=== PATIENT | female | born 1960 | race Caucasian/White ===

== ENCOUNTER 2018-02-13 23:12 | Emergency (ER) | payer BC ==
[2018-02-13 23:52] LABS: Absolute Lymphocytes (CBC) 3.1 K/uL (0.7-4.9); Absolute Monocytes 0.5 K/uL (0.1-1.3); Absolute Neutrophil 2.3 K/uL (1.8-8.0); Basophils % 0.5 % (0-1.3); Eosinophils % 1.6 % (0-4.4); Hematocrit 41.9 % (36.0-45.0); Lymphocytes % 51.5 % (15.3-44.8); MCH 33.9 pg (27.0-35.0); MCV 99.2 fL (80-100); MPV 9.2 fL (7.6-11.3); Monocytes % 7.6 % (3.3-12.3); RBC Red Blood Cell Count 4.22 M/uL (3.86-4.86)
[2018-02-13 23:56] LABS: Protime INR 0.97
[2018-02-14 00:11] LABS: ALT/SGPT 26 U/L (12-78); AST/SGOT 16 U/L (15-37); Albumin 3.5 g/dL (3.4-5.0); Alkaline Phosphatase 120 U/L (45-117); BUN Blood Urea Nitrogen 8 mg/dL (7-18); Bicarbonate 26 mmol/L (21-32); Bilirubin Direct < 0.1 mg/dL (0-0.2); Bilirubin Total 0.3 mg/dL (0.2-1.0); CKMB Creatine Kinase MB < 1.0 ng/mL (0.3-3.6); Creatine Phosphokinase 71 U/L (26-192); Glucose Level 94 mg/dL (74-106); Magnesium 2.2 mg/dL (1.8-2.4); NT PRO-BNP 93 pg/mL (<125); Potassium 3.9 mmol/L (3.5-5.1); Protein, Total 7.7 g/dL (6.4-8.2); Sodium Level 146 mmol/L (136-145); Troponin (Emerg Dept Use Only) < 0.02 ng/mL (0.0-0.045)
[2018-02-14] MEDS ORDERED: NA CHLORIDE 0.9% 1,000 ML ONE ×2 (00:45→01:18)
[2018-02-14 01:15] LABS: Urine Blood NEGATIVE (NEG); Urine Glucose NEGATIVE (NEG); Urine Protein NEGATIVE (NEG)
[2018-02-14 01:15] LABS: Barbiturates NEGATIVE (NEGATIVE); Benzodiazepines NEGATIVE (NEGATIVE); Cocaine NEGATIVE (NEGATIVE); METHAMPHETAM NEGATIVE (NEGATIVE); Methadone NEGATIVE (NEGATIVE); Opiates NEGATIVE (NEGATIVE); Phencyclidine NEGATIVE (NEGATIVE); THC Cannibis POSITIVE (NEGATIVE)
[2018-02-14] MEDS ORDERED: THIAMINE 200 MG/2 ML INJ ONE (01:16)
[2018-02-14] MEDS ORDERED: MULTIVITAMINS 10 ML VIAL (INJ) IV ONE (01:16)
[2018-02-14] MEDS ORDERED: FOLIC ACID 5 MG/ML VIAL ONE (01:17)
--- NOTE | 2018-02-14 02:41 | ER ---
Nurse's Notes [facility] Name: Dara Wadsworth Age: 57 yrs Sex: Female : 1960 Arrival Date: 02/13/2018 Time: 23:17 Bed 15 Private MD: Diagnosis: Alcohol abuse with intoxication Presentation: 02/13 23:18 Presenting complaint: EMS states: Patient is being weak and dizzy for the past few ao days. Weakness is getting worst lately. Patient denies vomiting or nausea. Patient is AOX2. Transition of care: patient was not received from another setting of care. No acute neurological deficit is noted. Pre-hospital glucose is not applicable to this patient. Onset of symptoms was February 13, 2018 at 03:00. Risk Assessment: Do you want to hurt yourself or someone else? Patient reports no desire to harm self or others. Initial Sepsis Screen: Does the patient meet any 2 criteria? No. Patient's initial sepsis screen is negative. Does the patient have a suspected source of infection? No. Patient's initial sepsis screen is negative. Care prior to arrival: None. 23:18 Method Of Arrival: EMS: [facility] ao 23:18 Acuity: DIANA 3 ao Triage Assessment: 23:48 The onset of the patients symptoms was February 12, 2018 at 15:00. General: Appears in ao no apparent distress. comfortable. General: Behavior is calm, listless, Confused. Neuro: Reports dizziness, since 1500 weakness since 1500. Stroke Activation: Physician: Stroke Attending; Name: ; Notified At: ; Arrived At: Physician: Chief Stroke Resident; Name: ; Notified At: ; Arrived At: Physician: Stroke Resident; Name: ; Notified At: ; Arrived At: Physician: ED Attending; Name: ; Notified At: ; Arrived At: Physician: ED Resident; Name: ; Notified At: ; Arrived At: 23:52 None activated. Pt shows no SS of stroke ao Historical: - Allergies: 23:23 No Known Allergies; ao - Home Meds: 23:23 Metoprolol Tartrate Oral [Active]; atorvastatin oral oral [Active]; ao - PMHx: 23:23 Hypertension; Hyperlipidemia; ao - PSHx: 23:23 None; ao - Immunization history:: Adult Immunizations up to date. - Social history:: Smoking status: Patient uses tobacco products, smokes one-half pack cigarettes per day, Patient uses alcohol, occasionally. Patient/guardian denies using street drugs. - Ebola Screening: : Patient negative for fever greater than or equal to 101.5 degrees Fahrenheit, and additional compatible Ebola Virus Disease symptoms Patient denies exposure to infectious person Patient denies travel to an Ebola-affected area in the 21 days before illness onset. Screenin:44 Abuse screen: Denies threats or abuse. Denies injuries from another. Nutritional ao screening: No deficits noted. Tuberculosis screening: No symptoms or risk factors identified. Fall Risk None identified. Assessment: 23:24 General: Appears in no apparent distress. Behavior is calm, cooperative, Smells of ao alcohol. Pain: Denies pain. Neuro: Level of Consciousness is awake, alert, Oriented to person, place, situation, Moves all extremities. Full function Speech is normal, Facial symmetry appears normal. Cardiovascular: Capillary refill < 3 seconds Patient's skin is warm and dry. Respiratory: Airway is patent Respiratory effort is even, unlabored, Respiratory pattern is regular, symmetrical. GI: Abdomen is obese, Bowel sounds present X 4 quads. : No signs and/or symptoms were reported regarding the genitourinary system. EENT: No signs and/or symptoms were reported regarding the EENT system. Derm: Skin is healthy with good turgor, Skin is pink, warm \T\ dry. normal, Skin temperature is warm. Musculoskeletal: Range of motion: limited in all extremities, Reports weakness in general weakness. 23:45 The patient has not been NPO before screening. The patient is alert, and able to follow ao commands. The patient does not exhibit slurred or garbled speech. The patient is not exhibiting difficulty speaking. The patient does not exhibit difficulty understanding words. The patient is able to swallow own secretions with no drooling or need for suction. Patient tolerated one teaspoon of water. No drooling, immediate coughing, gurgling, or clearing of the throat was noted. The patient tolerated 90mL of water. No drooling, immediate coughing, gurgling, or clearing of the throat was noted. The patient passed the bedside swallow screening. Oral medications may be given as ordered. Contact Physician for further diet orders. Provider notified of bedside swallow screening results: Servando SAN. 23:53 Reassessment: Patient states that drink alcohol occasional. Pt has odor of alchool. ao 02/14 00:57 Reassessment: Patient appears in no apparent distress at this time. Patient and/or ao family updated on plan of care and expected duration. Pain level reassessed. Patient is alert, oriented x 3, equal unlabored respirations, skin warm/dry/pink. 02:17 Reassessment: Patient appears in no apparent distress at this time. Patient and/or ao family updated on plan of care and expected duration. Pain level reassessed. Per MENA Andrew patient to stay until get sober and then to be discharge. Waiting on Dispo orders. 02:50 Reassessment: Patient felt dizzy ambulating. Karan andrew notified and decided to keep her ao longer before DC. 03:30 T-PA (Activase) Screening: Contraindications: Other: Pt not positive for stroke. Pt DC ao with alcohol intoxications. 03:31 Reassessment: DC instructions given to patient and significant other. patient agree ao with the POC and to follow up with PCP. patient agree with alcohol detox plan. Vital Signs: 02/13 23:21 BP 133 / 95; Pulse 94; Resp 16; Temp 98.1(O); Pulse Ox 99% on R/A; Weight 56.25 kg; ao Height 5 ft. 2 in. (157.48 cm); Pain 0/10; 02/14 00:57 BP 119 / 64; Pulse 78; Resp 15; Pulse Ox 100% on R/A; Pain 0/10; ao 02:17 BP 112 / 72; Pulse 84; Resp 22; Pulse Ox 100% on R/A; Pain 0/10; ao 02:50 BP 118 / 62; Pulse 82; Resp 12; Pulse Ox 99% on R/A; Pain 3/10; ao 02/13 23:21 Body Mass Index 22.68 (56.25 kg, 157.48 cm) ao NIH Stroke Scale Scores: 02/13 23:45 NIHSS Score: 1 ao ED Course: 23:17 Patient arrived in ED. ao 23:19 Servando Andrew PA is PHCP. cp 23:19 Logan Hurst MD is Attending Physician. cp 23:21 Triage completed. ao 23:24 Arm band placed on right wrist. Patient placed in an exam room, on a stretcher, on ao oxygen, on night clerk auditor, on pulse oximetry, Patient notified of wait time. 23:35 Inserted saline lock: 20 gauge in right antecubital area, using aseptic technique. ao Blood collected. 23:47 Patient has correct armband on for positive identification. Pulse ox on. NIBP on. ao 23:53 X-ray completed. Portable x-ray completed in exam room. Patient tolerated procedure kw well. 23:54 XRAY Chest (1 view) In Process Unspecified. EDMS 23:55 Romeo Peters RN is Primary Nurse. ao 02/14 00:[address] via stretcher. kw1 00:07 Basic Metabolic Panel Sent. ao 00:12 CT Head Brain wo Cont In Process Unspecified. EDMS 00:13 CT completed. Patient tolerated procedure well. Patient moved back from CT. kw1 03:29 No provider procedures requiring assistance completed. IV discontinued, intact, ao bleeding controlled, No redness/swelling at site. Pressure dressing applied. Administered Medications: 00:52 Drug: NS 0.9% 1000 ml Route: IV; Rate: 1 bolus; Site: right antecubital; ao 02:16 Follow up: IV Status: Completed infusion; IV Intake: 1000ml ao 01:12 Drug: Banana Bag - (NS 0.9% 1000 ml, foLIC Acid 1 mg, Thiamine 100 mg, Multivitamin 1 ao amp) Route: IV; Rate: 150 ml/hr; Site: right antecubital; 03:25 Follow up: IV Status: Completed infusion; IV Intake: 1000ml ao Point of Care Testing: Blood Glucose: 02/13 23:47 Blood Glucose: 84 mg/dL; ao Ranges: Intake: 02/14 02:16 IV: 1000ml; Total: 1000ml. ao 03:25 IV: 1000ml; Total: 2000ml. ao Outcome: 02:40 Discharge ordered by . cp 03:29 Discharged to home via wheelchair. ao 03:29 Condition: stable 03:29 Discharge instructions given to patient, Instructed on discharge instructions, follow up and referral plans. Demonstrated understanding of instructions, follow-up care, medications. 03:35 Patient left the ED. ao NIH Stroke Scale - NIH Stroke Score Date: 02/13/2018 Time: 23:45 Total Score = 1 1a. Level of Consciousness (LOC) - 0(Alert) 1b. Level of Consciousness (LOC) (Year \T\ Age) - 1(One) 1c. LOC Commands (Open \T\ Closes Eyes/Master Planner) - 0(Both) 2. Best Gaze (Lateral Gaze Paresis) - 0(Normal) 3. Visual Field Loss - 0(No visual loss) 4. Facial Palsy - 0(Normal) 5a. Left Arm: Motor (10-second hold) - 0(No drift) 5b. Right Arm: Motor (10-second hold) - 0(No drift) 6a. Left Leg: Motor (5-second hold - always test supine) - 0(No drift) 6b. Right Leg: Motor (5-second hold - always test supine) - 0(No drift) 7. Limb Ataxia (finger/nose \T\ heel/felipe - test with eyes open) - 0(Absent) 8. Sensory Loss (pinprick arms/legs/face) - 0(Normal) 9. Best Language: Aphasia (description/naming/reading) - 0(No aphasia) 10. Dysarthria (speech clarity - read or repeat words) - 0(Normal) 11. Extinction and Inattention (visual/tactile/auditory/spatial/personal) - 0(No abnormality) Initials: ao Signatures: Dispatcher [employer] EDIvon Oropeza Corey, PA PA cp Ortiz, Alex, RN RN ao Karen Guzman Corrections: (The following items were deleted from the chart) 02/13 23:54 23:24 General: Appears in no apparent distress. Behavior is calm, cooperative, ao ao
--- NOTE | 2018-02-14 02:41 | EDPHYS ---
Physician Documentation [facility] Name: Dara Wadsworth Age: 57 yrs Sex: Female : 1960 Arrival Date: 02/13/2018 Time: 23:17 Bed 15 Private MD: ED Physician Logan Hurst HPI: 02/13 23:25 This 57 yrs old Female presents to ER via EMS with complaints of Weakness, cp Dizziness. 23:25 The patient presents to the emergency department with weakness of the entire body, cp generalized weakness, dizziness. 23:25 Onset: The symptoms/episode began/occurred "past few days". cp 23:25 Associated signs and symptoms: Pertinent negatives: altered mental status, fever, cp headache, seizure, syncope. Patient's baseline: Neuro: alert and fully oriented, Motor: no deficits, Ambulation: walks without assistance, Speech: normal. Current symptoms: general weakness. Historical: - Allergies: 23:23 No Known Allergies; ao - Home Meds: 23:23 Metoprolol Tartrate Oral [Active]; atorvastatin oral oral [Active]; ao - PMHx: 23:23 Hypertension; Hyperlipidemia; ao - PSHx: 23:23 None; ao - Immunization history:: Adult Immunizations up to date. - Social history:: Smoking status: Patient uses tobacco products, smokes one-half pack cigarettes per day, Patient uses alcohol, occasionally. Patient/guardian denies using street drugs. - Ebola Screening: : Patient negative for fever greater than or equal to 101.5 degrees Fahrenheit, and additional compatible Ebola Virus Disease symptoms Patient denies exposure to infectious person Patient denies travel to an Ebola-affected area in the 21 days before illness onset. ROS: 23:30 Constitutional: Negative for body aches, chills, fever, poor PO intake. cp 23:30 Eyes: Negative for injury, pain, redness, and discharge. cp 23:30 ENT: Negative for drainage from ear(s), ear pain, sore throat, difficulty swallowing, difficulty handling secretions. 23:30 Cardiovascular: Negative for chest pain, edema. 23:30 Respiratory: Negative for cough, shortness of breath, wheezing. 23:30 Abdomen/GI: Negative for abdominal pain, vomiting, diarrhea, constipation, black/tarry stool, rectal bleeding. 23:30 : Negative for urinary symptoms. 23:30 Skin: Negative for cellulitis, rash. 23:30 Neuro: Positive for dizziness, general weakness, Negative for altered mental status, headache, loss of consciousness, seizure activity, syncope. 23:30 All other systems are negative. Exam: 23:35 Head/Face: Normocephalic, atraumatic. cp 23:35 Constitutional: The patient appears in no acute distress, alert, awake, non-diaphoretic, non-toxic, well developed, well nourished, smells of alcohol. 23:35 Eyes: Periorbital structures: appear normal, Pupils: equal, round, and reactive to light and accomodation, Extraocular movements: intact throughout, Conjunctiva: normal, no exudate, no injection, Sclera: no appreciated abnormality, Lids and lashes: appear normal, bilaterally. 23:35 ENT: External ear(s): are unremarkable, Ear canal(s): are normal, clear, TM's: bulging, is not appreciated, bilaterally, dullness, bilaterally, erythema, is not appreciated, bilaterally, Nose: is normal, Mouth: Lips: moist, Oral mucosa: pink and intact, moist, Posterior pharynx: is normal, airway is patent. 23:35 Neck: C-spine: vertebral tenderness, is not appreciated, crepitus, is not appreciated, ROM/movement: is normal, is supple, without pain, no range of motions limitations, no nuchal rigidity. 23:35 Chest/axilla: Inspection: normal, Palpation: is normal, no crepitus, no tenderness. 23:35 Cardiovascular: Rate: normal, Rhythm: regular, Pulses: Pulses are 2+ in right radial artery and left radial artery. Heart sounds: murmur, not appreciated, Edema: is not appreciated, JVD: is not appreciated. 23:35 Respiratory: the patient does not display signs of respiratory distress, Respirations: normal, no use of accessory muscles, no retractions, no splinting, no tachypnea, labored breathing, is not present, Breath sounds: are clear throughout, no decreased breath sounds, no stridor, no wheezing. 23:35 Abdomen/GI: Inspection: abdomen appears normal, Palpation: abdomen is soft and non-tender, in all quadrants, involuntary guarding, is not appreciated. 23:35 Musculoskeletal/extremity: Exam is negative for deformity, injury. 23:35 Skin: cellulitis, is not appreciated, no rash present. 23:35 Neuro: Orientation: to person, place \\T\\ time. Mentation: lucid, able to follow commands, Motor: moves all fours, strength is normal. 23:55 ECG was reviewed by the Attending Physician. Vital Signs: 23:21 BP 133 / 95; Pulse 94; Resp 16; Temp 98.1(O); Pulse Ox 99% on R/A; Weight 56.25 kg; ao Height 5 ft. 2 in. (157.48 cm); Pain 0/10; 02/14 00:57 BP 119 / 64; Pulse 78; Resp 15; Pulse Ox 100% on R/A; Pain 0/10; ao 02:17 BP 112 / 72; Pulse 84; Resp 22; Pulse Ox 100% on R/A; Pain 0/10; ao 02:50 BP 118 / 62; Pulse 82; Resp 12; Pulse Ox 99% on R/A; Pain 3/10; ao 02/13 23:21 Body Mass Index 22.68 (56.25 kg, 157.48 cm) ao NIH Stroke Scale Scores: 02/13 23:45 NIHSS Score: 1 ao MDM: 23:21 Patient medically screened. 02/14 02:39 Data reviewed: vital signs, nurses notes, lab test result(s), EKG, radiologic studies, cp CT scan, plain films. Test interpretation: by ED physician or midlevel provider: ECG, plain radiologic studies. Counseling: I had a detailed discussion with the patient and/or guardian regarding: the historical points, exam findings, and any diagnostic results supporting the discharge/admit diagnosis, lab results, radiology results, to return to the emergency department if symptoms worsen or persist or if there are any questions or concerns that arise at home. Response to treatment: the patient's symptoms have markedly improved after treatment, and as a result, I will discharge patient. 02/13 23:20 Order name: Basic Metabolic Panel 02/13 23:20 Order name: CBC with Diff; Complete Time: 23:56 02/14 02:38 Interpretation: Normal except: KENNY% 38.8; LYM% 51.5. 02/13 23:20 Order name: Ckmb; Complete Time: 01:02 cp 02/13 23:20 Order name: CPK; Complete Time: 01:02 cp 02/13 23:20 Order name: LFT's; Complete Time: 01:02 cp 02/13 23:20 Order name: Magnesium; Complete Time: 01:02 cp 02/13 23:20 Order name: NT PRO-BNP; Complete Time: 01:02 cp 02/13 23:20 Order name: PT-INR; Complete Time: 01:02 cp 02/13 23:20 Order name: Ptt, Activated; Complete Time: 01:02 cp 02/13 23:20 Order name: Troponin (emerg Dept Use Only); Complete Time: 01:02 cp 02/13 23:20 Order name: ETOH Level; Complete Time: 01:02 cp 02/14 02:39 Interpretation: ETOH 262. cp 02/13 23:20 Order name: Basic Metabolic Panel; Complete Time: 01:02 EDMS 02/13 23:20 Order name: UDS; Complete Time: 02:38 cp 02/14 02:38 Interpretation: Normal except: THC POSITIVE. 02/14 00:21 Order name: Glucose, Ancillary Testing; Complete Time: 01:02 EDMS 02/13 23:20 Order name: XRAY Chest (1 view) cp 02/13 23:20 Order name: EKG; Complete Time: 23:21 cp 02/13 23:20 Order name: Cardiac monitoring; Complete Time: 23:55 cp 02/13 23:20 Order name: EKG - Nurse/Tech; Complete Time: 23:55 cp 02/13 23:20 Order name: IV Saline Lock; Complete Time: 23:34 cp 02/13 23:20 Order name: Labs collected and sent; Complete Time: 23:34 cp 02/13 23:20 Order name: O2 Per Protocol; Complete Time: 23:34 cp 02/13 23:20 Order name: O2 Sat Monitoring; Complete Time: 23:34 cp 02/13 23:20 Order name: Urine Dipstick-Ancillary (obtain specimen); Complete Time: 00:32 cp 02/13 23:51 Order name: CT Head Brain wo Cont cp 02/14 00:39 Order name: Urine Dipstick--Ancillary (enter results); Complete Time: 02:38 mw2 EC/09 23:55 Rate is 78 beats/min. Rhythm is regular. DE interval is normal. QRS interval is normal. cp QT interval is normal. Interpreted by me. Reviewed by me. Administered Medications: 02/14 00:52 Drug: NS 0.9% 1000 ml Route: IV; Rate: 1 bolus; Site: right antecubital; ao 02:16 Follow up: IV Status: Completed infusion; IV Intake: 1000ml ao 01:12 Drug: Banana Bag - (NS 0.9% 1000 ml, foLIC Acid 1 mg, Thiamine 100 mg, Multivitamin 1 ao amp) Route: IV; Rate: 150 ml/hr; Site: right antecubital; 03:25 Follow up: IV Status: Completed infusion; IV Intake: 1000ml ao Point of Care Testing: Blood Glucose: 02/13 23:47 Blood Glucose: 84 mg/dL; ao Ranges: Critical Glucose Levels:Adult <50 mg/dl or >400 mg/dl <40 mg/dl or >180 mg/dl Disposition: 02/14 03:50 Co-signature as Attending Physician, Logan Hurst MD. pkl Disposition: 02/14/18 02:40 Discharged to Home. Impression: Alcohol abuse with intoxication. - Condition is Stable. - Discharge Instructions: Alcohol Intoxication, Alcohol Abuse and Nutrition. - Medication Reconciliation Form, Thank You Letter, Antibiotic Education, Prescription Opioid Use form. - Follow up: Emergency Department; When: As needed; Reason: Worsening of condition. - Problem is new. - Symptoms have improved. NIH Stroke Scale - NIH Stroke Score Date: 02/13/2018 Time: 23:45 Total Score = 1 1a. Level of Consciousness (LOC) - 0(Alert) 1b. Level of Consciousness (LOC) (Year \\T\\ Age) - 1(One) 1c. LOC Commands (Open \\T\\ Closes Eyes/Parts Facilitator) - 0(Both) 2. Best Gaze (Lateral Gaze Paresis) - 0(Normal) 3. Visual Field Loss - 0(No visual loss) 4. Facial Palsy - 0(Normal) 5a. Left Arm: Motor (10-second hold) - 0(No drift) 5b. Right Arm: Motor (10-second hold) - 0(No drift) 6a. Left Leg: Motor (5-second hold - always test supine) - 0(No drift) 6b. Right Leg: Motor (5-second hold - always test supine) - 0(No drift) 7. Limb Ataxia (finger/nose \\T\\ heel/felipe - test with eyes open) - 0(Absent) 8. Sensory Loss (pinprick arms/legs/face) - 0(Normal) 9. Best Language: Aphasia (description/naming/reading) - 0(No aphasia) 10. Dysarthria (speech clarity - read or repeat words) - 0(Normal) 11. Extinction and Inattention (visual/tactile/auditory/spatial/personal) - 0(No abnormality) Initials: ao Signatures: Dispatcher [employer] EDMS Logan Hurst MD MD pkServando Jerez PA PA Romeo Deluna, RN RN ao Corrections: (The following items were deleted from the chart) 00:07 02/13 23:20 Urine Test ordered. cp ao 02/14 03:35 02:40 02/14/2018 02:40 Discharged to Home. Impression: Alcohol abuse with ao intoxication. Condition is Stable. Forms are Medication Reconciliation Form, Thank You Letter, Antibiotic Education, Prescription Opioid Use. Follow up: Emergency Department; When: As needed; Reason: Worsening of condition. Problem is new. Symptoms have improved. cp
[2018-02-14 03:43] VITALS: TEMP 98.1
[2018-02-14 03:48] VITALS: BP 118/62; O2SAT 99
--- NOTE | 2018-02-14 08:38 | RAD REPORT ---
EXAM DESCRIPTION: RAD - Chest Single View - 02/13/2018 11:54 pm CLINICAL HISTORY: Weakness, shortness of breath, smoking history COMPARISON: October 2016 TECHNIQUE: AP portable chest image was obtained 2348 hours . FINDINGS: Lungs are clear. Heart and vasculature are normal. No measurable pleural effusion and no p neumothorax. No gross bony abnormality seen. No acute aortic findings suspected. IMPRESSION: No acute cardiopulmonary process. No significant change from comparison.
--- NOTE | 2018-02-14 08:39 | RAD REPORT ---
EXAM DESCRIPTION: CT - Head Brain Wo Cont - 02/14/2018 3:35 am CLINICAL HISTORY: Weakness, dizziness A preliminary report was provided at the time of the study and reviewed prior to final report. COMPARISON: None. TECHNIQUE: Axial 5 mm thick images of the head were obtained without IV contrast. All CT scans are performed using dose optimization technique as appropriate and may include automated exposure control or mA/KV adjustment according to patient size. FINDINGS: No intracranial hemorrhage, mass, edema or shift of mid-line structures. No acute infarcti on changes seen. No abnormal extra-axial fluid collections. Ventricles are normal. Mastoid air cells and visualized portions of the paranasal sinuses are clear. No acute bony findings. IMPRESSION: Negative non-contrast CT head examination.
--- NOTE | 2018-02-15 00:34 | EKG ---
Test Date: 2018-02-13 Test Time: 23:41:17 Member [employer]: JARVIS MEASUREMENT RESULTS: Intervals: Rate: 78 OH: 152 QRSD: 72 QT: 386 QTc: 440 Tolar: P: 11 OH: 152 QRS: 58 T: 26 INTERPRETIVE STATEMENTS: Normal sinus rhythm Normal ECG No previous ECG available for comparison Electronically Signed On 02-15-18 00:32:21 CDT by Mook Martinez
== END 2018-02-14 03:35 | disposition home or self-care (01) ==
LOC: ER 23:12
DX: I10 Essential (primary) hypertension (principal); E78.5 Hyperlipidemia, unspecified; F17.210 Nicotine dependence, cigarettes, uncomplicated
CPT/HCPCS: 36415; 70450; 71045; 80048; 80076; 80307; 80320; 81003; 82550; 82553; 82962; 83735; 83880; 84484; 85025; 85610; 85730; 93005; 96365; 96366; 99285; J3411; J7030

== ENCOUNTER 2022-12-10 00:19 | Emergency (ER) | payer OTHER ==
--- OUTSIDE RECORDS SUMMARY | 2022-12-10 00:27 | XMS REPORT | Continuity of Care Document ---
:1960 Author Organization [facility] t Address [address] [place] [address] Care Team Providers Name Role Phone Rocael OCONNELL, Denny Primary Care Physician [phone] Payers Payer Name Policy Type Policy Number Effective Date Expiration Date S ource [facility] - [id number] 2018 00:00:00 OUT OF STATE Problems This patient has no known problems. Allergies, Adverse Reactions, Alerts Allergy Allergy Status Severity Reaction(s) Onset Inactive Treating Comm ents Source Name Type Date Date Clinician Demerol Propensi Active - Oral ty to 03-04 adverse 00:00: reaction 00 to drug Demerol Propensi Active ty to 07-01 adverse 00:00: reaction 00 to drug MEPERIDI DRUG Active Hives [facility] INGREDI 02-23 ity of 00:00: [place] [facility] Medications Ordered Filled Start Stop Current Ordering Indication Dosage Frequency Signature Comments Components Source Medication Medication Date Date Medication? Clinician (SIG) Name Name Dose No Unknown 03-05 00:00: 00 Dose 0 No Unknown 07-02 00:00: 00 Vital Signs Vital Name Observation Time Observation Value Comments Source BP Systolic 2022-03-05 08:49:00 135 mm[Hg] BP Diastolic 2022-03-05 08:49:00 84 mm[Hg] Weight Measured 2022-03-05 08:49:00 125.60 pounds Height Measured 2022-03-05 08:49:00 56.00 inches Body Temperature 2022-03-05 08:49:00 97.80 degrees Heart Rate 2022-03-05 08:49:00 82.00 /min Respiratory Rate 2022-03-05 08:49:00 BP Systolic 2021-07-01 15:18:00 134 mm[Hg] BP Diastolic 2021-07-01 15:18:00 84 mm[Hg] Weight Measured 2021-07-01 15:18:00 125.00 pounds Height Measured 2021-07-01 15:18:00 Body Temperature 2021-07-01 15:18:00 98.30 degrees Heart Rate 2021-07-01 15:18:00 113.00 /min Respiratory Rate 2021-07-01 15:18:00 Procedures This patient has no known procedures. Plan of Care Planned Activity Planned Date Details Comments Source Goal Plan of Care Note [code = 89411-4] Goal Plan of Care Note [code = 30352-7] Goal Plan of Care Note [code = 49849-2] Goal Plan of Care Note [code = 20218-5] Goal Plan of Care Note [code = 99880-7] Goal Plan of Care Note [code = 67979-9] Goal Plan of Care Note [code = 28408-6] Goal Plan of Care Note [code = 54534-6] Goal Plan of Care Note [code = 24995-0] Goal Plan of Care Note [code = 37560-9] Goal Plan of Care Note [code = 38474-0] Goal Plan of Care Note [code = 96116-5] Goal Plan of Care Note [code = 94480-0] Goal Plan of Care Note [code = 10881-8] Goal Plan of Care Note [code = 02560-4] Goal Plan of Care Note [code = 66690-8] Encounters Start End Encounter Admission Attending Care Care Encounter Source Date/Time Date/Time Type Type Clinicians Facility Department ID 2021-04-04 Emergency [facility] [id number] Univers 14:11:02 it of [facility] 2022-12-02 2022-12-02 Outpatient SFA DREW [id number] 10:05:32 10:05:32 [id number] F Ortiz 2022-11-26 2022-11-26 Outpatient SFA SFA [id number] 09:10:55 09:10:55 [id number] F Ortiz 2022-11-25 2022-11-25 Outpatient SFA SFA [id number] 08:50:33 08:50:33 [id number] F [place] 2022-11-19 2022-11-19 Outpatient SFA SFA [id number] 08:38:01 08:38:01 [id number] F [place] 2022-11-18 2022-11-18 Outpatient SFA SFA [id number] 15:34:51 15:34:51 [id number] F [place] 2022-11-12 2022-11-12 Outpatient SFA SFA [id number] 13:24:36 13:24:36 [id number] F [place] 2022-11-06 2022-11-06 Outpatient SFA SFA [id number] [place] 13:18:46 13:18:46 [id number] F [place] 2022-10-15 2022-10-15 Outpatient SFA SFA [id number] [place] 13:17:13 13:17:13 [id number] F [place] 2022-08-24 2022-08-24 Outpatient SFA SFA [id number] [place] 16:39:36 16:39:36 [id number] F [place] 2022-03-24 2022-03-24 Outpatient SFA SFA [id number] [place] 11:17:53 11:17:53 [id number] [facility] 2022-03-05 2022-03-05 Outpatient [id number] 00:00:00 00:00:00 Visit [id number] Results Test Description Test Time Test Comments Results Result Comments Source COMPREHENSIVE METABOLIC PANEL 2022-11-20 07:33:21 Test Item Value Reference Range Interpretation Comme nts GLUCOSE (test code = 2217) 100 MG/DL 70-99 H BUN (test code = 2208) 13 MG/DL 8-23 CREATININE (test code = 0.73 MG/DL 0.60-1.30 2213) eGFR (2020 CKD-EPI) (test 93 ML/MIN/1.73 >60 code = 93734) CALC BUN/CREAT (test code = 18 RATIO 6-28 2234) SODIUM (test code = 2231) 142 MEQ/L 133-146 POTASSIUM (test code = 4.2 MEQ/L 3.5-5.4 2227) CHLORIDE (test code = 2215) 106 MEQ/L 95-107 CARBON DIOXIDE (test code = 22 MEQ/L -2205) CALCIUM (test code = 2209) 9.3 MG/DL 8.5-10.5 PROTEIN, TOTAL (test code = 7.3 G/DL 6.1-8.3 2228) ALBUMIN (test code = 2201) 4.2 G/DL 3.5-5.2 CALC GLOBULIN (test code = 3.1 G/DL 1.9-3.7 2239) CALC A/G RATIO (test code = 1.4 RATIO 1.0-2.6 2233) BILIRUBIN, TOTAL (test code 0.4 MG/DL See_Comment [Automated message] The = 2206) system which ge nerated this result transmit renetta reference range: <=1.2. T he reference range was not u sed to interpret this result as normal/abnormal . ALKALINE PHOSPHATASE (test 154 U/L 40-140 H code = 2203) AST (test code = 2218) 18 U/L 9-40 ALT (test code = 2219) 12 U/L 5-40 UNLE SS OTHERWISE INDICATED, ALL TESTING PER FORMED AT CLINICAL PATHOL [place], [facility]. [address] [place] [address] LABORATORY DIRE CTOR: Marcus WHITTAKERIA NUMBER [id number] CAP ACCREDITATION N O. [id number] HEMOGLOBIN [id number] 03:04:35 Test Item Value Reference Range Interpretation Comments HEMOGLOBIN A1c (test code = 58951) 5.5 % 4.2-5.6 H. PYLORI (BREATH)2022-11-19 14:45:26 Test Item Value Reference Range Interpretation Comments H. PYLORI (BREATH) POSITIVE NEGATIVE A UNLESS OTHERWISE (test code = 31275) INDICATE D, ALL TESTING PERFORMED AT INICAL PATHOLOGY [facility], [facility]. [address] [place] [address] [facility] DIRECTOR: Marcus CUEVASIA NUMBER [id number] CAP ACCREDITATION N O. [id number] COMPREHENSIVE METABOLIC [id number] 06:52:13 Test Item Value Reference Range Interpretation Comments GLUCOSE (test code = 150 MG/DL 70-99 H 2216) BUN (test code = 12 MG/DL 8-2207) CREATININE (test 0.77 MG/DL 0.60-1.30 code = 2213) eGFR (2020 CKD-EPI) 87 >60 (test code = 52065) ML/MIN/1.73 CALC BUN/CREAT (test 16 RATIO 6-28 code = 223) SODIUM (test code = 143 MEQ/L 362-953 8778) POTASSIUM (test code 4.2 MEQ/L 3.5-5.4 = 2227) CHLORIDE (test code 103 MEQ/L 95-107 = 2214) CARBON DIOXIDE (test 28 MEQ/L 19-31 code = 220) CALCIUM (test code = 10.1 MG/DL 8.5-10.5 2208) PROTEIN, TOTAL (test 7.6 G/DL 6.1-8.3 code = 2228) ALBUMIN (test code = 4.5 G/DL 3.5-5.2 2200) CALC GLOBULIN (test 3.1 G/DL 1.9-3.7 code = 2239) CALC A/G RATIO (test 1.5 RATIO 1.0-2.6 code = 2233) BILIRUBIN, TOTAL 0.3 MG/DL See_Comment [Automated message] (test code = 2206) The [employer] which generated this result transmitted ref erence range: <=1.2. T he reference range was not used to int erpret this result as normal/abnormal . ALKALINE PHOSPHATASE 144 U/L 40-140 H (test code = 2203) AST (test code = 21 U/L 9-40 2217) ALT (test code = 15 U/L 5-40 UNLESS OT HERWISE 2218) INDICATED, ALL TESTING PERFORM ED AT CLINICAL PATHOL [email or web address], [facility]. [address] [place] [id number] [place] [address] DIRECTOR: Marcus CUEVAS JUSTEN NUMBER [id number] CAP ACCREDITATION N O. [id number] COMPREHENSIVE METABOLIC [id number] 06:51:21 Test Item Value Reference Range Interpretation Comments GLUCOSE (test code = 100 MG/DL 70-99 H 2216) BUN (test code = 21 MG/DL 8-2207) CREATININE (test 0.82 MG/DL 0.60-1.30 code = 2213) eGFR (2020 CKD-EPI) 81 ML/MIN/1.73 >60 (test code = 13018) CALC BUN/CREAT (test 26 RATIO 6-28 code = 223) SODIUM (test code = 140 MEQ/L 583-416 9112) POTASSIUM (test code 4.4 MEQ/L 3.5-5.4 = 2227) CHLORIDE (test code 101 MEQ/L 95-107 = 2214) CARBON DIOXIDE (test 25 MEQ/L 19-31 code = 220) CALCIUM (test code = 10.6 MG/DL 8.5-10.5 H 2208) PROTEIN, TOTAL (test 7.7 G/DL 6.1-8.3 code = 2228) ALBUMIN (test code = 4.5 G/DL 3.5-5.2 2200) CALC GLOBULIN (test 3.2 G/DL 1.9-3.7 code = 2239) CALC A/G RATIO (test 1.4 RATIO 1.0-2.6 code = 2233) BILIRUBIN, TOTAL 0.4 MG/DL See_Comment [Automated message] (test code = 2206) The syste m which generated this result transmit renetta reference range : <=1.2. The refe rence range was not u sed to interpret th is result as normal/abnormal . ALKALINE PHOSPHATASE 168 U/L 40-140 H (test code = 2203) AST (test code = 21 U/L 9-40 2217) ALT (test code = 16 U/L 5-40 2218) TSH, THIRD [id number] 06:13:31 Test Item Value Reference Range Interpretation Comments TSH, THIRD 0.912 UIU/ML 0.400-4.100 UNLESS OTHERWI SE GENERATION (test INDICATED, ALL TESTING code = 2821) PERFORMED AT [facility] [place]. [address] [place] [address] [facility] [employer] DIRECTOR: Marcus CUEVAS JUSTEN NUMBER [id number] CAP ACCREDITATION N O. [id number] CBC W/AUTO DIFF WITH [id number] 06:03:55 Test Item Value Reference Range Interpretation Comments WBC (test code = 7.8 K/UL 3.5-11.0 1001) RBC (test code = 4.31 M/UL 3.80-5.40 1002) HEMOGLOBIN (test code 14.9 G/DL 11.5-15.5 = 1003) HEMATOCRIT (test code 42.6 % 34.0-45.0 = 1004) MCV (test code = 98.8 fL 80.0-99.0 1005) MCH (test code = 34.6 PG 25.0-33.0 H 1006) MCHC (test code = 35.0 G/DL 31.0-36.0 1007) RDW (test code = 12.3 % 11.5-15.0 1038) NEUTROPHILS (test 63.0 % code = 1008) LYMPHOCYTES (test 26.5 % code = 1010) MONOCYTES (test code 8.8 % = 1011) EOSINOPHILS (test 0.9 % code = 1012) BASOPHILS (test code 0.4 % = 1013) IMMATURE GRANULOCYTES 0.4 % (test code = 1036) NUCLEATED RBCS (test 0.0 /100 WBC'S See_Comment [Aut omated code = 1065) message] The sy stem which generated this result transmitted reference range : 0.0. The refere nce range was not u sed to interpret th is result as normal/abnormal . PLATELET COUNT (test 301 K/UL 130-400 code = 1015) ABSOLUTE NEUTROPHILS 4.89 K/UL 1.50-7.50 (test code = 1066) ABSOLUTE LYMPHOCYTES 2.06 K/UL 1.00-4.00 (test code = 1067) ABSOLUTE MONOCYTES 0.68 K/UL 0.20-1.00 (test code = 1068) ABSOLUTE EOSINOPHILS 0.07 K/UL 0.00-0.50 (test code = 1040) ABSOLUTE BASOPHILS 0.03 K/UL 0.00-0.20 (test code = 1069) ABS IMMATURE 0.03 K/UL 0.00-0.10 GRANULOCYTES (test code = 1020) ABS NUCLEATED RBCS 0.00 K/UL 0.00-0.11 (test code = 98992) CT/NG, NAAT, [id number] 19:03:35 Test Item Value Reference Range Interpretation Comments GONORRHEA, NAAT NEGATIVE NEGATIVE IMPORTA NT NOTICE: SEE (test code = [place] [address]) [email or web address] Note: Assay methodology is nucleic acid amplification b y sales representative malt liquors m ediated amplification ( TMA) utilizing the A ptima Combo 2 Assay. CHLAMYDIA, NAAT NEGATIVE NEGATIVE IMPORTA NT NOTICE: SEE (test code = [place] [address]) [email or web address] Note: Assay methodology is nucleic acid amplification b y sales representative malt liquors m ediated amplification ( TMA) utilizing the A ptima Combo 2 Assay. TRICHOMONAS, NAAT, [id number] 15:07:26 Test Item Value Reference Range Interpretation Comments TRICHOMONAS, NAAT NEGATIVE NEGATIVE IMPOR TANT NOTICE: SEE (test code = [place] [address]) [email or web address] Note: Assay methodology is nucleic acid amplification b y sales representative malt liquors m ediated amplification ( TMA) and Hybridization P rotection Assay (HPA) uti lizing the too.me platform. A negative result does not exclude low lev el infection, specimensamplin g error, or collection erro r. HIV 1/2 4TH GEN, RFLX [id number] 05:55:52 Test Item Value Reference Range Interpretation Comments HIV 1/2 4TH GEN, RFLX CONF (test NON-REACTIVE NON-REACTIVE code = 3514) HEPATITIS PANEL, [id number] 05:55:52 Test Item Value Reference Range Interpretation Comments HEPATITIS A IgM (test NON-REACTIVE NON-REACTIVE code = 48125) HEPATITIS B CORE IgM NON-REACTIVE NON-REACTIVE (test code = 4644) HEPATITIS B SURF AG NON-REACTIVE NON-REACTIVE (test code = 2739) HEPATITIS C ANTIBODY NON-REACTIVE NON-REACTIVE (test code = 4675) INTERPRETATION (NOTE) Hepatitis A HEPATITIS A: (test serology shows no code = 2552) evidence of acu te hepatitis A. INTERPRETATION (NOTE) Hepatitis B HEPATITIS B: (test serology shows no code = 32876) evidence of ac jacques hepatitis B and no indication of exposure to hepatitis B vir us in the previous si xto eight months. INTERPRETATION (NOTE) Hepatitis C HEPATITIS C: (test serology shows no code = 51143) evidence of ex posure to hepatitisC v irus at this time. I t can take up to 12 m onths after exposure tothe hepatitis C vir us for antibodies to become detectab le in the blood in ce rtain patients. UNLES S OTHERWISE INDIC ATED, ALL TESTING PERFORMED [facility]IES, [facility]. [address] [place] [address] [facility] DIRECTOR: DIANNA ESPINO M.D. CLIA NUMBER [id number] [place] [id number] 03:12:16 Test Item Value Reference Range Interpretation Comments RPR RESULT (test code = NON-REACTIVE NON-REACTIVE 3501) RPR TITER (test code = 3500) NOT INDIC. TITER NOT INDIC. [id number] 00:00:00 Test Item Value Reference Range Interpretation Comments RPR RESULT (test code = NON-REACTIVE 3501) RPR TITER (test code = 3500) NOT INDIC. TITER [id number] 00:00:00 Test Item Value Reference Range Interpretation Comments RPR RESULT (test code = NON-REACTIVE 3501) RPR TITER (test code = 3500) NOT INDIC. TITER [id number] 00:00:00 Test Item Value Reference Range Interpretation Comments RPR RESULT (test code = NON-REACTIVE 3501) RPR TITER (test code = 3500) NOT INDIC. TITER CT/NG, TMA, [id number] 00:00:00 Test Item Value Reference Range Interpretation Comments GONORRHEA, NAAT (test code = 38142) NEGATIVE CHLAMYDIA, NAAT (test code = 78564) NEGATIVE CT/NG, TMA, [id number] 00:00:00 Test Item Value Reference Range Interpretation Comments GONORRHEA, NAAT (test code = 15584) NEGATIVE CHLAMYDIA, NAAT (test code = 64022) NEGATIVE TRICHOMONAS, URINE, [id number] 00:00:00 Test Item Value Reference Range Interpretation Comments TRICHOMONAS, NAAT (test code = NEGATIVE 45816) TRICHOMONAS, URINE, [id number] 00:00:00 Test Item Value Reference Range Interpretation Comments TRICHOMONAS, NAAT (test code = NEGATIVE 98551) ACUTE HEPATITIS [id number] 00:00:00 Test Item Value Reference Range Interpretation Comments HEPATITIS A IgM (test code = NON-REACTIVE 72830) HEPATITIS B CORE IgM (test code NON-REACTIVE = 4644) HEPATITIS B SURF AG (test code = NON-REACTIVE 2739) HEPATITIS C ANTIBODY (test code NON-REACTIVE = 4675) INTERPRETATION HEPATITIS A: (NOTE) (test code = 2552) INTERPRETATION HEPATITIS B: (NOTE) (test code = 81974) INTERPRETATION HEPATITIS C: (NOTE) (test code = 64135) ACUTE HEPATITIS [id number] 00:00:00 Test Item Value Reference Range Interpretation Comments HEPATITIS A IgM (test code = NON-REACTIVE 55697) HEPATITIS B CORE IgM (test code NON-REACTIVE = 4644) HEPATITIS B SURF AG (test code = NON-REACTIVE 2739) HEPATITIS C ANTIBODY (test code NON-REACTIVE = 4675) INTERPRETATION HEPATITIS A: (NOTE) (test code = 2552) INTERPRETATION HEPATITIS B: (NOTE) (test code = 04784) INTERPRETATION HEPATITIS C: (NOTE) (test code = 52546) HIV 1/2 4TH GEN, RFLX [id number] 00:00:00 Test Item Value Reference Range Interpretation Comments HIV 1/2 4TH GEN, RFLX CONF (test NON-REACTIVE code = 3514) HIV 1/2 4TH GEN, RFLX [id number] 00:00:00 Test Item Value Reference Range Interpretation Comments HIV 1/2 4TH GEN, RFLX CONF (test NON-REACTIVE code = 3514) SARS-CoV-2 (COVID-19), RT-PCR/[id number] 08:05:27 Test Item Value Reference Interpretation Comments Range SARS-CoV-2 NEGATIVE SEE NOTE SARS-CoV-2 RNA NOT INTERPRETATION DETECTEDNegat patrizia (test code = 80951) results do not preclude SARS-CoV-2 infe ction and should notb e used as the sole bas is for patient managem ent decisions. Negativeresults must be combined with c linical observations, p atient history,and epidemiological information. Op timum specimen types and timingfor peak viral levels during infections caus ed by SARS-CoV-2 have notbeen determined. Col lection of multiple spe cimens or types ofspec imens may be necessar y to detect virus. I mproper specimencollect ion and handling, seque nce variability und er primers/probes, or organism presen t below the limit of de tection may lead to falsenegative r esults. Positive and ne gative predictive valu es oftesting are h ighly dependent on prevalence. Fal se negative testre sults are more likely when prevalence is h igh. SOURCE (test code = NOT SPECIFIED Note: [place] [address]) Melly Nathalia Cherie l-Time RT-PCR. The exp ected result or refer ence range is NEGATI VE (Not Detected). For more information reg arding COVID-19 testin g to include clinicalinforma tion, methodology det ail, intended use, F DA authorization andrecommended fact sheets for avery ents or healthcare prov iders, see BakedCode Announcement: SARS-CoV-2 (COV ID-19) by NAAT at URL below (note,fact shee ts are provided by met hod given in report:https:// [email or web address] [email or web address] [email or web address] Alternatively, see downloadable PD F fact sheet at:[email or web address]. [email or web address]-RT -PCR UNLESS OTHERWIS E INDICATED, ALL TESTING PERFORMED [facility] NICAL [facility] [address] [place] [address] 4 LABORATORY DIRE CTOR: DIANNA MONCADA M.D. CLIA NUMBER [id number] [place] [id number] SARS-CoV-2 (COVID-19) by RT-PCR (HIGH RISK)2021 00:00:00 Test Item Value Reference Range Interpretation Comments SARS-CoV-2 INTERPRETATION (test NEGATIVE code = 85626) SOURCE (test code = 30605) NOT SPECIFIED SARS-CoV-2 (COVID-19) by RT-PCR (HIGH RISK)2021 00:00:00 Test Item Value Reference Range Interpretation Comments SARS-CoV-2 INTERPRETATION (test NEGATIVE code = 29619) SOURCE (test code = 11283) NOT SPECIFIED
[2022-12-10 01:04] LABS: Absolute Lymphocytes (CBC) 2.8 K/uL (0.7-4.9); Hematocrit 43.8 % (36.0-45.0); Lymphocytes % 26.4 % (15.3-44.8); MCV 98.9 fL (80-100); MPV 8.2 fL (7.6-11.3); RBC Red Blood Cell Count 4.43 M/uL (3.86-4.86)
[2022-12-10 01:23] LABS: ALT/SGPT 33 U/L (13-56); AST/SGOT 32 U/L (15-37); Albumin 3.5 g/dL (3.4-5.0); Alkaline Phosphatase 131 U/L (45-117); BUN Blood Urea Nitrogen 12 mg/dL (7-18); Bicarbonate 23 mEq/L (21-32); Bilirubin Direct < 0.1 mg/dL (0-0.2); Bilirubin Indirect, Calculated ND mg/dL (0.2-0.8); Bilirubin Total 0.4 mg/dL (0.2-1.0); Glomerular Filtration Rate 73 ml/min (=/>90); Glucose Level 110 mg/dL (74-106); NT PRO-BNP 41 pg/mL (<125); Potassium 3.9 mEq/L (3.5-5.1); Sodium Level 137 mEq/L (136-145); Troponin High Sensitivity < 3.0 pg/mL (<58.9)
[2022-12-10] MEDS ORDERED: KETOROLAC 30 MG/ML INJ ONE (01:29)
[2022-12-10] MEDS ORDERED: DIPHENHYDRAMINE 50 MG/ML VIAL ONE (01:29)
[2022-12-10] MEDS ORDERED: NA CHLORIDE 0.9% 500 ML ONE ×2 (01:29→02:55)
[2022-12-10] MEDS ORDERED: METOCLOPRAMIDE 10 MG/2mL INJ ONE (01:29)
--- NOTE | 2022-12-10 03:36 | EDPHYS ---
Physician Documentation [facility] Name: Dara Wadsworth Age: 62 yrs Sex: Female : 1960 Arrival Date: 12/10/2022 Time: 00:19 Bed 5 Private MD: ED Physician Olayinka Do HPI: 12/10 00:20 This 62 yrs old Female presents to ER via Unassigned with complaints of High sp4 Blood Pressure. 03:19 62-year-old female with a history of hyperlipidemia and hypertension presents with sp4 acute on,'s, elevated blood pressure 174 systolic at home, associated with headache and vomiting. Patient denied any fever, denied diarrhea, denied any other symptoms but reported some vertigo. . Historical: - PMHx: 00:39 Hyperlipidemia; Hypertension; kd3 - Immunization history:: Adult Immunizations up to date. - Social history:: Smoking status: unknown. - Family history:: not pertinent. ROS: 03:19 Constitutional: Negative for fever, chills, and weight loss, positive for generalized sp4 weakness, dizziness, vertigo, headache, vomiting Eyes: Negative for injury, pain, redness, and discharge, ENT: Negative for injury, pain, and discharge, Neck: Negative for injury, pain, and swelling, Cardiovascular: Negative for chest pain, palpitations, and edema, Respiratory: Negative for shortness of breath, cough, wheezing, and pleuritic chest pain, Abdomen/GI: Negative for abdominal pain, diarrhea, and constipation, positive for nausea and vomiting Back: Negative for injury and pain, : Negative for injury, bleeding, discharge, and swelling, MS/Extremity: Negative for injury and deformity, Skin: Negative for injury, rash, and discoloration, Neuro: Negative for numbness, tingling, and seizure, positive for headache, and negative for lateralizing weakness Psych: Negative for depression, anxiety, Allergy/Immunology: Negative for hives, rash, and allergies Endocrine: Negative for neck swelling, polydipsia, polyuria, polyphagia, and weight changes Hematologic/Lymphatic: Negative for swollen nodes, abnormal bleeding, and unusual bruising Exam: 03:19 Constitutional: This is a well developed, well nourished patient who is awake, alert, sp4 and in no acute distress. Head/Face: Normocephalic, atraumatic. Eyes: Pupils equal round and reactive to light, extra-ocular motions intact. Lids and lashes normal. Conjunctiva and sclera are not injected. Cornea within normal limits. Periorbital areas with no swelling, redness, or edema. ENT: Nares patent. No nasal discharge, no septal abnormalities noted. Tympanic membranes are normal and external auditory canals are clear. Oropharynx with no redness, swelling, or masses, exudates, or evidence of obstruction, uvula midline. Mucous membranes moist. Neck: Trachea midline, no thyromegaly or masses palpated, and no cervical lymphadenopathy. Supple, full range of motion without nuchal rigidity, or vertebral point tenderness. Chest/axilla: Normal chest wall appearance and motion. Nontender with no deformity. No lesions are appreciated. Cardiovascular: Regular rate and rhythm with a normal S1 and S2. No gallops, murmurs, or rubs. Normal PMI, no JVD. No pulse deficits. Respiratory: Lungs have equal breath sounds bilaterally, clear to auscultation and percussion. No rales, rhonchi or wheezes noted. No increased work of breathing, no retractions or nasal flaring. Abdomen/GI: Soft, non-tender, with normal bowel sounds. No distension or tympany. No guarding or rebound. No evidence of tenderness throughout. Back: No spinal tenderness. No costovertebral tenderness. Skin: Warm, dry with normal turgor. Normal color with no rashes, no lesions, and no evidence of cellulitis. MS/ Extremity: Pulses equal, no cyanosis. Neurovascular intact. Full, normal range of motion. Neuro: Awake and alert, GCS 15, oriented to person, place, time, and situation. Cranial nerves II-XII grossly intact. Motor strength 5/5 in all extremities. Sensory grossly intact. Psych: Awake, alert, with orientation to person, place and time. Behavior, mood, and affect are within normal limits 03:19 ECG was reviewed by the Attending Physician. EKG time 0038, there is normal sinus rhythm with a rate of 96, normal EKG. Muscle tremor artifact Vital Signs: 00:36 BP 165 / 102; Pulse 104; Resp 16; Temp 98.2(O); Pulse Ox 97% on R/A; Weight 49.44 kg; kd3 Height 4 ft. 8 in. ; 02:10 BP 138 / 89; Pulse 109; Resp 19; Temp 98; Pulse Ox 100% ; rv 03:22 BP 115 / 77; Pulse 97; Resp 18 S; Pulse Ox 100% on R/A; lg3 00:36 Body Mass Index 24.44 (49.44 kg, 142.24 cm) kd3 [place] Coma Score: 02:10 Eye Response: spontaneous(4). Motor Response: obeys commands(6). Verbal Response: rv oriented(5). Total: 15. MDM: 00:24 Patient medically screened. sp4 02:46 ED course: . sp4 03:23 Data reviewed: vital signs, nurses notes, lab test result(s), cardiac enzymes, CBC, sp4 electrolytes, hepatic panel, EKG, radiologic studies, CT scan. Consideration of Admission/Observation Escalation of care including admission/observation considered. ED course: EKG is normal, electrolyte panel basically normal, normal blood sugar 110, CBC is normal, liver function panel is normal troponin is normal BNP is normal. 03:32 Differential Diagnosis altered mental status, sepsis, flu, Vertigo, dizziness, sp4 dehydration. ED course: Mrs. Wadsworth presents with dizziness, nausea vomiting, vertigo and generalized malaise. Work-up in the emergency room is unremarkable. Patient was given medicines for headache and vertigo in the ER and she feels better. She was also given IV hydration , will discharge home with symptomatic medications.. 07 00:22 Order name: Basic Metabolic Panel; Complete Time: 02:32 sp4 12/10 00:22 Order name: CBC with Diff; Complete Time: 02:32 sp4 12/10 00:22 Order name: LFT's; Complete Time: 02:32 sp4 12/10 00:22 Order name: NT PRO-BNP; Complete Time: 02:32 sp4 12/10 00:22 Order name: Troponin HS; Complete Time: 02:32 sp4 12/10 02:32 Order name: Alcohol Level; Complete Time: 03:15 sp4 12/10 01:17 Order name: CT Head Brain wo Cont sp4 12/10 00:22 Order name: EKG; Complete Time: 00:23 sp4 12/10 00:22 Order name: Cardiac monitoring; Complete Time: 00:51 sp4 12/10 00:22 Order name: EKG - Nurse/Tech; Complete Time: 00:51 sp4 07 00:22 Order name: IV Saline Lock; Complete Time: 00:58 sp4 12/10 00:22 Order name: Labs collected and sent; Complete Time: 00:58 sp4 12/10 00:22 Order name: O2 Per Protocol; Complete Time: 00:51 sp4 07 00:22 Order name: O2 Sat Monitoring; Complete Time: 00:51 sp4 EC:19 Rate is 96 beats/min. Rhythm is regular, Normal Sinus Rhythm. QRS [place] is Normal. [place] sp4 interval is normal. QRS interval is normal. QT interval is normal. T waves are Normal. No ST changes noted. Clinical impression: Normal ECG. Interpreted by me. Administered Medications: 01:26 Drug: metoCLOPramide IVP 10 mg Route: IVP; Site: right antecubital; rv 02:09 Follow up: Response: No adverse reaction rv 01:26 Drug: Ketorolac IVP 30 mg Route: IVP; Site: right antecubital; rv 02:09 Follow up: Response: No adverse reaction rv 01:26 Drug: diphenhydrAMINE IVP 25 mg Route: IVP; Site: right antecubital; rv 02:09 Follow up: Response: No adverse reaction rv 01:26 Drug: NS 0.9% IV 500 ml Route: IV; Rate: bolus; Site: right antecubital; rv 02:09 Follow up: IV Status: Completed infusion; IV Intake: 500ml rv 02:53 Drug: NS 0.9% IV 500 ml Route: IV; Rate: bolus; Site: right antecubital; lg3 03:45 Follow up: IV Status: Completed infusion; IV Intake: 500ml lg3 Disposition Summary: 12/10/22 03:35 Discharge Ordered Location: Home sp4 Problem: new sp4 Symptoms: have improved sp4 Condition: Stable sp4 Diagnosis - Other peripheral vertigo sp4 - Acute tension headache, nausea vomiting, generalized weakness sp4 Followup: sp4 - With: Private Physician - When: 7 - 10 days - Reason: Recheck today's complaints Discharge Instructions: - Discharge Summary Sheet sp4 - Vertigo, [id number] sp4 Forms: - [email or web address] sp4 Prescriptions: - Fioricet 50-300-40 mg Oral capsule - take 1 capsule by ORAL route every 6 hours PRN headache; 30 capsule; Refills: sp4 0, Product Selection Permitted - Meclizine 25 mg Oral Tablet - take 1 tablet by ORAL route every 8 hours As needed; 30 tablet; Refills: 0, sp4 Product Selection Permitted - promethazine 25 mg Oral Tablet - take 1 tablet by ORAL route every 6 hours As needed PRN nausea; 25 tablet; sp4 Refills: 0, Product Selection Permitted Signatures: Dispatcher [employer] EDMS Ciaran Cancino, RN RN Leonie Austin, RN RN lg3 Shireen Love RN RN kd3 Olayinka Do MD MD sp4 Corrections: (The following items were deleted from the chart) 02:48 02:46 ED course: EXAM DESCRIPTION: Angio Aorta For Dissection 12/10/2022 2:36 AM CDT sp4 CLINICAL HISTORY: 74 years, Female, right sided chest and back pain COMPARISON: None. PROCEDURE: Multiple transaxial tomograms of the thoracic and abdominal aorta from the lung apex to the ischial tuberosities utilizing 3 mm slice thickness at 3 mm interval reconstruction after the administration of large bolus of IV contrast for complete opacification of the thoracic, abdominal aorta and iliac arteries. 2-D and 3-D multiplanar reformats, volume rendering technique and maximum intensity projection images were generated and reviewed. This exam was performed according to our departmental dose-optimization protocol, which includes automated exposure control, adjustment of the mA and/or kV according to patient size and/or use of iterative reconstruction technique. FINDINGS: Thoracic aorta: The thoracic aorta demonstrate to be within normal limits. There is no evidence for aneurysm/or dissection. There is normal branching pattern of the great vessels with no evidence for significant stenosis/or occlusion along the proximal vessels. Abdominal aorta: The abdominal aorta demonstrate to be within normal limits. There is very minimal atheromatous plaque formation infrarenal portion. There is no evidence for aneurysm and/or dissection. Bilateral iliac arteries demonstrate to be patent with no evidence for significant stenosis. Visceral branches demonstrate to be unremarkable. No evidence for significant stenosis/or occlusion. There are single bilateral renal arteries with no evidence for significant stenosis. Chest: The lung parenchyma demonstrate to be clear. No significant pulmonary nodules and/or masses are identified. Dependent atelectatic changes lung bases with bilateral posterior diaphragmatic hernia/Bochdalek type hernias. The trachea mainstem bronchus demonstrate to be unremarkable. There is no pleural/or pericardial effusions. The heart is normal in size. The central portions of the pulmonary arteries demonstrate normal opacification with no evidence for significant filling defects that will suggest pulmonary embolus. There is no significant mediastinal and/or hilar lymphadenopathy. The axillary regions demonstrate to be clear. The bone windows demonstrate no significant skeletal lesions. Abdomen and pelvis: The liver, spleen, adrenal glands, pancreas demonstrate to be unremarkable. The gallbladder demonstrated presence of a slight layering density structures corresponding to most likely cholelithiasis. No evidence for significant intrahepatic biliary duct dilatation/or significant filling defects The kidneys demonstrate normal uptake of contrast media. There is no evidence for nephrolithiasis and/or hydronephrosis. Grossly the unopacified stomach, small bowel and large bowel demonstrate to be within normal limits. No evidence for bowel dilatation/or free air. The appendix is normal. There is mild fecal stasis within the large bowel. The urinary bladder demonstrate to be within normal limits. The uterus is absent. There are no adnexal masses. There is no evidence for ascites. No retroperitoneal lymphadenopathy. The bone windows demonstrate mild bony osteopenia. Superior plate compression deformity at L1 and L3. IMPRESSION: No evidence for significant filling defects that will suggest significant pulmonary embolus. No evidence for thoracic or abdominal aortic aneurysm and/or dissection. Superior plate compression deformity at L1 and L3. Cholelithiasis. Mild fecal stasis within the large bowel. 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 . sp4
--- NOTE | 2022-12-10 03:36 | ER ---
Nurse's Notes [facility] Name: Dara Wadsworth Age: 62 yrs Sex: Female : 1960 Arrival Date: 12/10/2022 Time: 00:19 Bed 5 Private MD: Diagnosis: Other peripheral vertigo;Acute tension headache, nausea vomiting, generalized weakness Presentation: 12/10 00:36 Chief complaint: Patient states: I have been out of my Amlodpine for 3 days now. I also kd3 take metoprolol. After my shower today I started to feel bad. I started to shake and my pulse was racing so around 11:45, I took my blood pressure and it was in the 170's. That made me very anxious. 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 Coronavirus screen: Vaccine status:. Ebola Screen: No symptoms or risks identified at this time. Initial Sepsis Screen: Does the patient meet any 2 criteria? No. Patient's initial sepsis screen is negative. Does the patient have a suspected source of infection? No. Patient's initial sepsis screen is negative. Risk Assessment: Do you want to hurt yourself or someone else? Patient reports no desire to harm self or others. Onset of symptoms was December 10, 2022. 00:36 Method Of Arrival: Ambulatory kd3 00:36 Acuity: DIANA 3 kd3 Triage Assessment: 00:39 General: Appears uncomfortable, Behavior is anxious. Pain: Denies pain. kd3 Historical: - PMHx: 00:39 Hyperlipidemia; Hypertension; kd3 - Immunization history:: Adult Immunizations up to date. - Social history:: Smoking status: unknown. - Family history:: not pertinent. Screenin:[address] [facility] ED Fall Risk Assessment (Adult) History of falling in the last 3 months, lg3 including since admission No falls in past 3 months (0 pts). Abuse screen: Denies threats or abuse. Denies injuries from another. Nutritional screening: No deficits noted. Tuberculosis screening: No symptoms or risk factors identified. 01:[address] [facility] ED Fall Risk Assessment (Adult) History of falling in the last 3 months, rv including since admission No falls in past 3 months (0 pts) Confusion or Disorientation. Abuse screen: Denies threats or abuse. Denies injuries from another. Assessment: 01:25 General: Appears in no apparent distress. comfortable, Behavior is cooperative, lg3 anxious. Pain: Complains of pain in head. Neuro: No deficits noted. [place] Agitation-Sedation Scale (RASS): 0 - Alert and Calm Level of Consciousness is awake, alert, obeys commands, Oriented to person, place, time, situation. Cardiovascular: No deficits noted. Denies chest pain, Capillary refill < 3 seconds Clubbing of nail beds is absent JVD is absent Patient's skin is warm and dry. Rhythm is sinus tachycardia Chest pain is denied. Respiratory: No deficits noted. Airway is patent Respiratory effort is even, unlabored, Respiratory pattern is regular, symmetrical. GI: No deficits noted. No signs and/or symptoms were reported involving the gastrointestinal system. : No deficits noted. No signs and/or symptoms were reported regarding the genitourinary system. EENT: No deficits noted. No signs and/or symptoms were reported regarding the EENT system. Derm: No deficits noted. No signs and/or symptoms reported regarding the dermatologic system. Skin is intact, is healthy with good turgor, Skin is dry, Skin is normal, Skin temperature is warm. Musculoskeletal: No deficits noted. Circulation, motion, and sensation intact. Range of motion: intact in all extremities, Reports shakiness. 02:32 Reassessment: Patient appears in no apparent distress at this time. No changes from lg3 previously documented assessment. Patient and/or family updated on plan of care and expected duration. Pain level reassessed. Patient is alert, oriented x 3, equal unlabored respirations, skin warm/dry/pink. 03:22 Reassessment: Patient appears in no apparent distress at this time. No changes from lg3 previously documented assessment. Patient and/or family updated on plan of care and expected duration. Pain level reassessed. Patient is alert, oriented x 3, equal unlabored respirations, skin warm/dry/pink. Vital Signs: 00:36 BP 165 / 102; Pulse 104; Resp 16; Temp 98.2(O); Pulse Ox 97% on R/A; Weight 49.44 kg; kd3 Height 4 ft. 8 in. ; 02:10 BP 138 / 89; Pulse 109; Resp 19; Temp 98; Pulse Ox 100% ; rv 03:22 BP 115 / 77; Pulse 97; Resp 18 S; Pulse Ox 100% on R/A; lg3 00:36 Body Mass Index 24.44 (49.44 kg, 142.24 cm) kd3 [place] Coma Score: 02:10 Eye Response: spontaneous(4). Motor Response: obeys commands(6). Verbal Response: rv oriented(5). Total: 15. ED Course: 00:19 Patient arrived in ED. ag3 00:19 Olayinka Do MD is Attending Physician. sp4 00:39 Triage completed. kd3 00:39 Arm band placed on right wrist. EKG completed in triage. Results shown to MD. kd3 00:55 Inserted saline lock: 20 gauge in right antecubital area, using aseptic technique. rv Blood collected. 00:58 Ciaran Cancino, RN is Primary Nurse. rv 00:58 Basic Metabolic Panel Sent. rv 00:58 CBC with Diff Sent. rv 00:58 LFT's Sent. rv 00:58 NT PRO-BNP Sent. rv 00:58 Troponin HS Sent. rv 01:25 Patient has correct armband on for positive identification. Placed in gown. Bed in low lg3 position. Call light in reach. Side rails up X 1. Client placed on continuous cardiac and pulse oximetry monitoring. NIBP monitoring applied. security monitor on. Door closed. Noise minimized. Warm blanket given. Family accompanied patient. 02:09 CT Head Brain wo Cont In Process Unspecified. EDMS 02:10 No provider procedures requiring assistance completed. rv 03:44 IV discontinued, intact, bleeding controlled, No redness/swelling at site. Pressure lg3 dressing applied. Administered Medications: 01:26 Drug: metoCLOPramide IVP 10 mg Route: IVP; Site: right antecubital; rv 02:09 Follow up: Response: No adverse reaction rv 01:26 Drug: Ketorolac IVP 30 mg Route: IVP; Site: right antecubital; rv 02:09 Follow up: Response: No adverse reaction rv 01:26 Drug: diphenhydrAMINE IVP 25 mg Route: IVP; Site: right antecubital; rv 02:09 Follow up: Response: No adverse reaction rv 01:26 Drug: NS 0.9% IV 500 ml Route: IV; Rate: bolus; Site: right antecubital; rv 02:09 Follow up: IV Status: Completed infusion; IV Intake: 500ml rv 02:53 Drug: NS 0.9% IV 500 ml Route: IV; Rate: bolus; Site: right antecubital; lg3 03:45 Follow up: IV Status: Completed infusion; IV Intake: 500ml lg3 Medication: 03:44 VIS not applicable for this client. lg3 Intake: 02:09 IV: 500ml; Total: 500ml. rv 03:45 IV: 500ml; Total: 1000ml. lg3 Outcome: 03:35 Discharge ordered by . sp4 03:44 Discharged to home ambulatory. lg3 03:44 Condition: stable 03:44 Discharge instructions given to patient, Instructed on discharge instructions, follow up and referral plans. medication usage, Demonstrated understanding of instructions, follow-up care, medications, Prescriptions given X 3. 03:45 Patient left the ED. lg3 Signatures: Dispatcher [employer] EDCiaran Barton RN RN rv Sweetie Simon3 Leonie Ryan RN RN lg3 Shireen Love RN RN kd3 lOayinka Do MD MD sp4 Corrections: (The following items were deleted from the chart) 03:09 01:25 Pain: Denies pain. lg3 lg3
[2022-12-10 04:05] VITALS: TEMP 98; O2SAT 100
[2022-12-10 04:11] VITALS: BP 115/77
--- NOTE | 2022-12-10 12:13 | EKG ---
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
--- NOTE | 2022-12-11 07:10 | RAD REPORT ---
EXAM DESCRIPTION: Head Brain Wo Cont CLINICAL HISTORY: DIZZINESS TECHNIQUE: Contiguous axial CT images obtained through the brain without IV contrast. Coronal and sa gittal reformatted images were provided. This exam was performed according to our departmental dose-optimization program, which includes autom ated exposure control, adjustment of the mA and/or kV according to patient size and/or use of iterati ve reconstruction technique. COMPARISON: February 2018 FINDINGS: Brain: No significant white matter changes. No focal mass effect. Denson-white matter differ entiation is within normal limits. No hemorrhage. Ventricles: No ventriculomegaly or midline shift. Extra-axial spaces: No extra-axial collection or hemorrhage. Paranasal sinuses and mastoid air cells: Well-aerated Bones: Unremarkable Soft tissues: Unremarkable IMPRESSION: No evidence of acute intracranial pathology. Electronically signed by: Sergey Barragan MD 12/10/2022 3:25 AM CDT Due to temporary technical issues with the PACS/Fluency reporting system, reports are being signed by the in house radiologists without review as a courtesy to insure prompt reporting. The interpreting radiologist is fully responsible for the content of the report.
== END 2022-12-10 03:45 | disposition home or self-care (01) ==
LOC: ER 00:19
DX: H81.399 Other peripheral vertigo, unspecified ear (principal); G44.209 Tension-type headache, unspecified, not intractable; R11.2 Nausea with vomiting, unspecified; R53.1 Weakness; I10 Essential (primary) hypertension
CPT/HCPCS: 96361; 93005; 85025; 80048; 36415; 80076; 84484; 83880; 70450; 96375; 96374; 99285; 82077; J2765; J1200; J7040 ×2